=== PATIENT | female | born 1990 | race Caucasian/White ===

== ENCOUNTER 2019-04-06 12:50 | Inpatient (IN) | payer OTHER ==
[2019-04-06] MEDS ORDERED: SODIUM CHLORIDE 1,000 ML IV STA (13:02)
[2019-04-06] MEDS ORDERED: ACETAMINOPHEN 1000 MG/100 ML VIAL (NON FORMULARY) IVPB ONE (13:02)
[2019-04-06] MEDS ORDERED: ACETAMINOPHEN 325 MG TABLET (FP) ONE ×2 (13:05→20:51)
[2019-04-06] MEDS ORDERED: ACETAMINOPHEN 325 MG TABLET (FP) PO ONE (13:08)
[2019-04-06 13:10] VITALS: BMI 26.4
--- NOTE | 2019-04-06 13:12 | PDOC ---
Rapid Medical Evaluation Medical Evaluation: Allergies Allergy/AdvReac Type Severity Reaction Status Date / Time No Known Allergies Allergy Verified 04/06/19 13:00 Vital Signs Temp Pulse Resp BP Pulse Ox 102 F H 123 H 22 H 119/72 98 04/06/19 13:08 04/06/19 13:08 04/06/19 13:08 04/06/19 13:08 04/06/19 13:08 04/06/19 13:10 Pt c/o: flank pain and dysuria, 17 weeks , started macrobid yesterday Pt on brief exam: rt cva tenderness, tachy Pt ordered for: labs urine, ivf, iv tylenol Pt to proceed to the ED <Maxine Carrizales - Last Filed: 04/12/19 13:46> Medical Evaluation: Allergies Allergy/AdvReac Type Severity Reaction Status Date / Time No Known Allergies Allergy Verified 04/06/19 13:00 Vital Signs Temp Pulse Resp BP Pulse Ox 98.0 F 88 18 100/55 L 99 04/09/19 10:00 04/09/19 10:00 04/09/19 10:00 04/09/19 10:00 04/06/19 20:49 <Camille Tolbert - Last Filed: 04/12/19 19:33> Time Seen by Provider: 04/06/19 13:01 Discharge Disposition <Maxine Carrizales - Last Filed: 04/12/19 13:46> <Camille Tolbert - Last Filed: 04/12/19 19:33> - Diagnosis Flank pain, Acute pyelonephritis in second trimester, antepartum - Discharge Dispostion Condition at time of disposition: Stable
--- NOTE | 2019-04-06 13:46 | PDOC ---
History of Present Illness <Camille Tolbert Tanner - Last Filed: 04/06/19 19:12> - History of Present Illness Initial Comments: 04/06/19 14:57 The patient is a 29 year old 17 week female who presents for evaluation of right flank pain. The patient reports a 1 day history of worsening right flank pain with associated dysuria. She noted fevers today prompting her presentation to the ED for further evaluation. She states that she was diagnosed with a UTI by her OB and placed on macrobid that she started taking 1 day ago. She otherwise denies chills, SOB, chest pain, nausea, vomiting, abdominal pain, vaginal bleeding, vaginal discharge, or changes with bowel movements. <MelissaServando - Last Filed: 04/06/19 19:19> - General Chief Complaint: SIRS, Suspected/Possible Stated Complaint: 17 W PREG/FLANK PAIN Time Seen by Provider: 04/06/19 13:01 Past History <DidiCamillearik Hart - Last Filed: 04/06/19 19:12> - Past Medical History COPD: No - Psycho Social/Smoking Cessation Hx Smoking History: Never smoked <Servando Torres - Last Filed: 04/06/19 19:19> - Past Medical History Allergies/Adverse Reactions: Allergies Allergy/AdvReac Type Severity Reaction Status Date / Time No Known Allergies Allergy Verified 04/06/19 13:00 Home Medications: Ambulatory Orders Ferrous Sulfate 325 mg PO DAILY 04/06/19 Nitrofurantoin Monohyd/M-Cryst [Macrobid -] 100 mg PO BID 04/06/19 95/Iron Fum/Folic/Dha [ + Dha Combo Pack] 1 each PO DAILY 04/06 Review of Systems - Review of Systems Comments:: 04/06/19 15:02 Constitutional: Fevers. No chills, fatigue, malaise HEENT: No Rhinorrhea, nasal congestion, visual changes Cardiovascular: No chest pain, syncope, palpitations, lightheadedness Respiratory: No Cough, SOB, Hemoptysis, Gastrointestinal: No Abdominal pain, Nausea, Vomiting, Constipation, Diarrhea, Melena Genitourinary: Right flank pain, Dysuria. No Frequency, Urgency, Hesitancy, Hematuria, Musculoskeletal: No Myalgia, arthralgia Skin: No rashes, itching, bruising, pallor Neurologic: No Headache, Dizziness, Numbness, Weakness, or Tingling Psychiatric: No Hallucinations. No SI or HI <Servando Torres - Last Filed: 04/06/19 19:19> *Physical Exam - Vital Signs Last Vital Signs Temp Pulse Resp BP Pulse Ox 98.4 F 97 H 22 H 103/82 99 04/06/19 17:18 04/06/19 17:18 04/06/19 13:08 04/06/19 17:18 04/06/19 17:18 <Camille Tolbert - Last Filed: 04/06/19 19:12> - Vital Signs Last Vital Signs Temp Pulse Resp BP Pulse Ox 102 F H 123 H 22 H 119/72 98 04/06/19 13:08 04/06/19 13:08 04/06/19 13:08 04/06/19 13:08 04/06/19 13:08 - Physical Exam 04/06/19 15:03 General Appearance: Nourished. No Apparent Distress HEENT: No Pharyngeal Erythema, Tonsillar Exudate, Tonsillar Erythema Neck: No Cervical Lymphadenopathy Respiratory/Chest: Lungs Clear, Normal Breath Sounds. No Crackles, Rales, Rhonchi, Wheezing Cardiovascular: Regular Rhythm, Regular Rate. No Murmur, Gallops, Rubs Gastrointestinal/Abdominal: Normal Bowel Sounds, Soft. No Guarding, Rebound, Tenderness Musculoskeletal: Right CVA Tenderness. No Left CVA Tenderness Extremity: Normal Capillary Refill Integumentary: Normal Color, Dry, Warm Neurologic: Fully Oriented, Alert, Normal Mood/Affect, Normal Response, <MelissaServando - Last Filed: 04/06/19 19:19> Heart Score/ECG Review #1 ECG reviewed & interpreted by me at: 19:05 General ECG Interpretation: Sinus Rhythm, Normal Intervals 04/06/19 19:12 Sinus tachycardia 101 bpm, nonspecific T wave abnormalities, normal intervals, narrow QRS, normal ST/T wave segments <Camille Tolbert - Last Filed: 04/06/19 19:12> ED Treatment Course - LABORATORY CBC & Chemistry Diagram: 04/06/19 14:12 04/06/19 14:12 - ADDITIONAL ORDERS Additional order review: Laboratory Results 04/06/19 04/06/19 14:55 14:12 Sodium 136 Potassium 3.5 Chloride 106 Carbon Dioxide 21 Anion Gap 8 BUN 5.3 L Creatinine 0.4 L Est GFR (CKD-EPI)AfAm 165.44 Est GFR (CKD-EPI)NonAf 142.74 Random Glucose 74 Calcium 8.6 Total Bilirubin 0.3 AST 16 ALT 17 Alkaline Phosphatase 105 Total Protein 6.2 L Albumin 2.7 L Lipase 152 Urine Color Yellow Urine Appearance Cloudy Urine pH 8.0 Ur Specific [place] 1.006 L Urine Protein Negative Urine Glucose (UA) Negative Urine Ketones Negative Urine Blood Negative Urine Nitrite Negative Urine Bilirubin Negative Urine Urobilinogen 0.2 Ur Leukocyte Esterase 1+ H Urine WBC (Auto) 26 Urine RBC (Auto) 1 Urine Casts (Auto) 1 U Epithel Cells (Auto) 10.8 Urine Bacteria (Auto) 1095.6 04/06/19 14:12 RBC 3.51 L MCV 80.5 MCHC 33.5 RDW 13.8 MPV 9.3 Neutrophils % 72.8 Lymphocytes % 15.3 Monocytes % 11.2 H Eosinophils % 0.5 Basophils % 0.2 - Medications Given in the ED: ED Medications Discontinued Medications Generic Name Dose Route Start Last Admin Trade Name Freq PRN Reason Stop Dose Admin Acetaminophen 1,000 mg 04/06/19 13:02 04/06/19 13:08 Ofirmev Injection - IVPB 04/06/19 13:03 Not Given ONCE ONE Acetaminophen 650 mg 04/06/19 13:08 04/06/19 13:08 Tylenol - PO 04/06/19 13:09 650 mg NOW ONE Administration Sodium Chloride 1,000 mls @ 1,000 mls/hr 04/06/19 13:02 04/06/19 14:20 Normal Saline - IV 04/06/19 14:01 1,000 mls/hr ASDIR STA Administration Ceftriaxone Sodium 1 gm/ 100 mls @ 200 mls/hr 04/06/19 16:55 04/06/19 17:00 Dextrose IVPB 04/06/19 17:24 200 mls/hr ONCE ONE Administration <Camille Tolbert - Last Filed: 04/06/19 19:12> - LABORATORY CBC & Chemistry Diagram: 04/06/19 14:12 04/06/19 14:12 - Medications Given in the ED: ED Medications Discontinued Medications Generic Name Dose Route Start Last Admin Trade Name Freq PRN Reason Stop Dose Admin Acetaminophen 1,000 mg 04/06/19 13:02 04/06/19 13:08 Ofirmev Injection - IVPB 04/06/19 13:03 Not Given ONCE ONE Acetaminophen 650 mg 04/06/19 13:08 04/06/19 13:08 Tylenol - PO 04/06/19 13:09 650 mg NOW ONE Administration <Servando Torres - Last Filed: 04/06/19 19:19> Medical Decision Making - Medical Decision Making 04/06/19 15:04 The patient is a 29 year old 17 week female who presents for evaluation of right flank pain. Differential includes but is not limited to: Pyelonephritis, Kidney stone, UTI, Infectious, Metabolic Derangement. Given the patient's history and physical exam, we will obtain a cbc, cmp, ua, renal US to evaluate further. We will treat with iv fluids and tylenol here in the Ed and continue to monitor and reassess. 04/06/19 19:14 CBC demonstrate a wbc to 10.3. CMP is unremarkable. UA demonstrates positive leuk esterase with elevated WBC. Renal US demonstrates bilateral mild hydronephrosis as read by our radiologist. Bedside US demonstrates normal HR at 143 with movement. The patient's symptoms are likely due to pyelonephritis. Given the patient's pyelonephritis during , she will require admission for further management. We discussed the case with OB Dr. Caputo who evaluated the patient and has accepted the patient to the OB service. We have treated the patient with ceftriaxone here in the ED. <Servando Torres - Last Filed: 04/06/19 19:19> Discharge <Camille Tolbert - Last Filed: 04/06/19 19:12> - Discharge Information Problems reviewed: Yes <Servando Torres - Last Filed: 04/06/19 19:19> - Discharge Information Clinical Impression/Diagnosis: Flank pain, Acute pyelonephritis in second trimester, antepartum Condition: Guarded
[2019-04-06 15:11] LABS: BASO % 0.2 % (0-2.0); EOS % 0.5 % (0-4.5); HEMATOCRIT 28.3 % (32.4-45.2); HEMOGLOBIN 9.5 GM/dL (10.7-15.3); LYMPH % 15.3 % (8-40); MCHC 33.5 g/dl (32.0-36.0); MEAN CELL VOLUME 80.5 fl (80-96); MEAN PLT VOLUME 9.3 fl (7.5-11.1); MONO % 11.2 % (3.8-10.2); NEUT % 72.8 % (42.8-82.8); PLATELET COUNT 222 K/MM3 (134-434); RBC 3.51 M/mm3 (3.60-5.2); RDW 13.8 % (11.6-15.6); WHITE BLOOD COUNT 10.5 K/mm3 (4.0-10.0)
--- NOTE | 2019-04-06 15:18 | PDOC ---
Documentation entered by Richardson Salas SCRIBE, acting as scribe for Nestor Polk MD. Nestor Polk MD: This documentation has been prepared by the Josue hughes Xhesika, SCRIBE, under my direction and personally reviewed by me in its entirety. I confirm that the documentation accurately reflects all work, treatment, procedures, and medical decision making performed by me. Attending Attestation - Resident Resident Name: Servando Torres - ED Attending Attestation I have performed the following: I have examined & evaluated the patient, The case was reviewed & discussed with the resident, I agree w/resident's findings & plan, Exceptions are as noted - HPI HPI: 04/06/19 14:42 The patient is a 29 year old female, 17 weeks with no PMH of who presents to the ED for 1 day of R flank pain and dysuria. Patient notes she started macrobid yesterday for UTI. Pt notes today she developed fevers. The patient denies shortness of breath, headache and dizziness. Denies chills, cough, nausea, vomiting, diarrhea and constipation. Denies frequency, urgency and hematuria. Allergies:, NKDA Social Hx: Denies current smoking, drinking, or other substance usage. - Physicial Exam PE: 04/06/19 14:43 Vitals: Triage Vital signs reviewed General Appearance: no acute distress, well nourished well developed, Chest Wall: Nontender Cardiac: Regular rate and rhythm, no murmurs, no rubs, no gallops, Lungs: Clear to auscultation bilateral, good air movement bilaterally, Abdomen: +R CVA tenderness to palpation. 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
[2019-04-06 16:12] LABS: ALBUMIN 2.7 g/dl (3.4-5.0); BILIRUBIN,TOTAL 0.3 mg/dL (0.2-1); BLOOD UREA NITROGEN 5.3 mg/dL (7-18); CALCIUM 8.6 mg/dL (8.5-10.1); CREATININE 0.4 mg/dL (0.55-1.3); POTASSIUM 3.5 mmol/L (3.5-5.1); TOT PROT 6.2 g/dl (6.4-8.2)
[2019-04-06 16:13] LABS: EPI CELLS 10.8 /HPF (0-5/HPF); HYALINE CASTS 1 /lpf (0-8); URINE APPEARANCE CLOUDY; URINE BACTERIA 1095.6 /hpf (NEGATIVE); URINE BILIRUBIN NEGATIVE (NEGATIVE); URINE COLOR YELLOW; URINE GLUCOSE (UA) NEGATIVE (NEGATIVE); URINE KETONE NEGATIVE (NEGATIVE); URINE LEUK ESTERASE 1+ (NEGATIVE); URINE NITRITE NEGATIVE (NEGATIVE); URINE PROTEIN NEGATIVE (NEGATIVE); URINE RBC 1 /hpf (0-4); URINE UROBILINOGEN 0.2 mg/dL (0.2-1.0); URINE WBC 26 /hpf (0-5)
[2019-04-06] MEDS ORDERED: CEFTRIAXONE 1 GM in DEXTROSE 5%-WATER - 100 ML IVPB ONE (16:55)
[2019-04-06] MEDS ORDERED: CEFTRIAXONE 1 GM/50 ML BAG ONE (16:58)
--- NOTE | 2019-04-06 19:10 | PDOC ---
*Physical Exam - Vital Signs Last Vital Signs Temp Pulse Resp BP Pulse Ox 98.4 F 97 H 22 H 103/82 99 04/06/19 17:18 04/06/19 17:18 04/06/19 13:08 04/06/19 17:18 04/06/19 17:18 ED Treatment Course - LABORATORY CBC & Chemistry Diagram: 04/06/19 14:12 04/06/19 14:12 - ADDITIONAL ORDERS Additional order review: Laboratory Results 04/06/19 04/06/19 14:55 14:12 Sodium 136 Potassium 3.5 Chloride 106 Carbon Dioxide 21 Anion Gap 8 BUN 5.3 L Creatinine 0.4 L Est GFR (CKD-EPI)AfAm 165.44 Est GFR (CKD-EPI)NonAf 142.74 Random Glucose 74 Calcium 8.6 Total Bilirubin 0.3 AST 16 ALT 17 Alkaline Phosphatase 105 Total Protein 6.2 L Albumin 2.7 L Lipase 152 Urine Color Yellow Urine Appearance Cloudy Urine pH 8.0 Ur Specific [place] 1.006 L Urine Protein Negative Urine Glucose (UA) Negative Urine Ketones Negative Urine Blood Negative Urine Nitrite Negative Urine Bilirubin Negative Urine Urobilinogen 0.2 Ur Leukocyte Esterase 1+ H Urine WBC (Auto) 26 Urine RBC (Auto) 1 Urine Casts (Auto) 1 U Epithel Cells (Auto) 10.8 Urine Bacteria (Auto) 1095.6 04/06/19 14:12 RBC 3.51 L MCV 80.5 MCHC 33.5 RDW 13.8 MPV 9.3 Neutrophils % 72.8 Lymphocytes % 15.3 Monocytes % 11.2 H Eosinophils % 0.5 Basophils % 0.2 - Medications Given in the ED: ED Medications Discontinued Medications Generic Name Dose Route Start Last Admin Trade Name Anival PRN Reason Stop Dose Admin Acetaminophen 1,000 mg 04/06/19 13:02 04/06/19 13:08 Ofirmev Injection - IVPB 04/06/19 13:03 Not Given ONCE ONE Acetaminophen 650 mg 04/06/19 13:08 04/06/19 13:08 Tylenol - PO 04/06/19 13:09 650 mg NOW ONE Administration Sodium Chloride 1,000 mls @ 1,000 mls/hr 04/06/19 13:02 04/06/19 14:20 Normal Saline - IV 04/06/19 14:01 1,000 mls/hr ASDIR STA Administration Ceftriaxone Sodium 1 gm/ 100 mls @ 200 mls/hr 04/06/19 16:55 04/06/19 17:00 Dextrose IVPB 04/06/19 17:24 200 mls/hr ONCE ONE Administration Medical Decision Making - Medical Decision Making 04/06/19 19:08 pt signed out from Dr Polk pending admission +fever, +tachycardia. given analgesia, IVF and antipyretics. She has WBCs greater than 26 and 1+ urinary leuk esterase follow-up on urine cultures, mild leukocytosis is noted 10 point 5K, electrolytes and creatinine are within normal limits Given setting of pyelonephritis in , patient does have risk of bacteremia and ascending infection getting worse/sepsis so will admit Renal ultrasound with bilateral hydronephrosis which is physiologic related to her . Bedside [id number] ultrasound done with appropriate wellbeing, heart rate 145 bpm and adequate movement. 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 04/06/19 19:11 04/06/19 19:11 Discharge - Discharge Information Problems reviewed: Yes Clinical Impression/Diagnosis: Flank pain, Acute pyelonephritis in second trimester, antepartum Condition: Guarded - Admission Yes - Follow up/Referral - Patient Discharge Instructions - Post Discharge Activity
[2019-04-06] MEDS ORDERED: LACTATED RINGERS SOLUTION 1,000 ML/1,000 ML INFUS.BAG IV SCH (19:30)
--- NOTE | 2019-04-06 19:33 | HP ---
Admitting History and Physical - Primary Care Physician PCP: Jeb Caputo - Admission Chief Complaint: right flank pain History of Present Illness: Patient reports diagnosis of UTI and starting PO antibiotics today. She reports severe pain that has now improved and feeling cold at home. She denies LOF, VB, contractions, chills, nusea, vomiting. 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 MAKER: No: Alzheimer's, CVA, Dementia, Migraine, Multiple Sclerosis, Peripheral Neuropathy, Parkinson's, Seizure, Syncope, TIA, Vertigo, Other Cardiovascular: No: AFIB, Aneurysm, Aortic Insufficiency, Aortic Stenosis, CAD, CHF, Deep Vein Thrombosis, HTN, Hyperlipdemia, VA, Mitral Insufficiency, Mitral Stenosis, Murmur, Pulmonary Hypertension, Other Pulmonary: No: Asthma, Bronchitis, Cancer, COPD, O2 Dependent, Pneumonia, Previously Intubated, Pulmonary Embolus, Pulmonary Fibrosis, Sleep Apnea, Other Gastrointestinal: No: Ascites, Cancer, Constipation, Crohn's Disease, Diverticulitis, Diverticulosis, Esophageal Varices, Gastritis, GERD, GI Bleed, Hemorrhoids, Hiatal Hernia, Inflamatory Bowel Disease, Irritable Bowel Disease, Pancreatitis, Peptic Ulcer Disease, Ulcerative Colitis, Other Hepatobiliary: No: Cirrhosis, Cholelithiasis, Cholecystitis, Choledocholithiasis , Hepatitis A, Hepatitis B, Hepatitis C, Other Renal/: No: Renal Failure, Renal Inusuff, BPH, Cancer, Hematuria, Hemodialysis , Neurogenic Bladder, Renal Calculi, UTI, Other ...: Yes ...: 1 Heme/Onc: No: Anemia, B12 Deficiency, Bleeding Disorder, Cancer, Current Chemotherapy, Current Radiation Therapy, Hemochromatosis, Hypercoaguable State, Myeloproliferative Synd, Sickle Cell Disease, Sickle Cell Trait, Thrombocytopenia, Other Infectious Disease: No: AIDS, C-Diff, Herpes Zoster, HIV, MRSA, STD's, Tuberculosis, VREF, Other Psych: No: Addictions, Anxiety, Bipolar, Depression, Panic, Psychosis, Schizophrenia, Other Musculoskeletal: No: Bursitis, Chronic low back pain, Hemiparesis, Hemiplegia, Osteoarthritis, Paraplegia, Other Rheumatology: No: Fibromyalgia, Gout, Lupus, Rheumatoid Arthritis, Sarcoidosis, Vasculitis, Other ENT: No: Allergic Rhinitis, Sinusitis, Other Endocrine: No: Archuleta's Disease, Bronson's Disease, Diabetes Insipidus, Diabetes Mellitus, Hyperparathyroidism, Hyperthyroidism, Hypothyroidism, Osteopenia, SIADH, Other Dermatology: No: Basal Cell, Cellulitis, Eczema, Melanoma, Psoriasis, Squamous Cell, Other - Past Surgical History Past Surgical History: No: None, AAA Repair, AICD, Amputation, Appendectomy, Arthrosocopy, AV Fistula/Graft, Bariatric Surgery, Breast Biopsy, Bypass, CABG, Carotid Endarterectomy, Cataract Removal, Cholecystectomy, Colectomy, Colonoscopy, Colostomy, Craniotomy, , Cystectomy, Hernia Repair, Hysterectomy, Ileal Conduit, Ileosotomy, Joint Replacement, Kidney Transplant, Laminectomy, Liver Transplant, Mastectomy, Nephrectomy, Oopherectomy, Orchiectomy, Permanent Pacemaker, Prostatectomy, Splenectomy, Stent, Thoracotomy , TURP, Tonsillectomy, Tubal Ligation, Upper Endoscopy, Valve Replacement, Vasectomy, Vein Stripping/Ligation - Smoking History Smoking history: Never smoked - Alcohol/Substance Use Hx Alcohol Use: No History of Substance Use: reports: None Home Medications - Allergies Allergies/Adverse Reactions: Allergies Allergy/AdvReac Type Severity Reaction Status Date / Time No Known Allergies Allergy Verified 04/06/19 13:00 - Home Medications Home Medications: Ambulatory Orders Ferrous Sulfate 325 mg PO DAILY 04/06/19 Nitrofurantoin Monohyd/M-Cryst [Macrobid -] 100 mg PO BID 04/06/19 95/Iron Fum/Folic/Dha [ + Dha Combo Pack] 1 each PO DAILY 04/06 Family Medical History Family History: Unremarkable Review of Systems - Review of Systems Constitutional: reports: Chills, Fever Eyes: reports: No Symptoms HENT: reports: Mouth Swelling Neck: reports: No Symptoms Cardiovascular: reports: No Symptoms Respiratory: reports: No Symptoms Gastrointestinal: reports: No Symptoms Genitourinary: reports: Flank Pain (right) Breasts: reports: No Symptoms Reported Musculoskeletal: reports: No Symptoms, Muscle Cramps Integumentary: reports: No Symptoms Neurological: reports: No Symptoms Endocrine: reports: No Symptoms Hematology/Lymphatic: reports: No Symptoms Psychiatric: reports: No Symptoms Physical Examination Vital Signs: Vital Signs Temperature 98.4 F 04/06/19 17:18 Pulse Rate 97 H 04/06/19 17:18 Respiratory Rate 22 H 04/06/19 13:08 Blood Pressure 103/82 04/06/19 17:18 O2 Sat by Pulse Oximetry (%) 99 04/06/19 17:18 Constitutional: Yes: No Distress HENT: Yes: Atraumatic Neck: Yes: Supple Cardiovascular: Yes: Regular Rate and Rhythm Respiratory: Yes: Regular Gastrointestinal: Yes: Normal Bowel Sounds, Other (grevid, n/t, n/d) Renal/: Yes: CVA Tenderness - Right (moderate) Breast(s): Yes: Other Musculoskeletal: Yes: WNL Extremities: Yes: WNL Edema: Yes Edema: LLE: Trace, RLE: Trace Integumentary: Yes: WNL Neurological: Yes: Alert, Oriented ...Motor Strength: WNL Psychiatric: Yes: Alert, Oriented Labs: CBC, BMP 04/06/19 14:12 04/06/19 14:12 Imaging - Results Ultrasound: Report Reviewed, Image Reviewed Assessment/Plan 29 y/o G1 at approximately 17wks by patient, no OB complaints, presentation consistent with pyelonephritis, renal sono consistent with non-obstructing calculi. Stable condition following antipyretics and IV ceftriaxone. ER bedside sono revealed viable . -Admit for IV abx -F/U Ux -Regular diet -FHR daily -strain urine -Consider Urology consult if no clinical improvement
[2019-04-06] MEDS: ACETAMINOPHEN 325 MG TABLET (FP) PO PRN (20:53)
[2019-04-07] MEDS: ACETAMINOPHEN 325 MG TABLET (FP) PO PRN ×2 (04:55→17:49)
[2019-04-07] MEDS: CEFTRIAXONE 1 GM in DEXTROSE 5%-WATER - 50 ML IVPB SCH ×2 (06:14→18:19)
--- NOTE | 2019-04-07 11:56 | PN ---
Progress Note, Physician Chief Complaint: Patient is doing well, pain has subsided, no bleeding, no LOF, no contractions. Patient reports LUCERO 07/21/18 making her 24.6wks. - Current Medication List Current Medications: Active Medications Acetaminophen (Tylenol -) 650 mg PO Q6H PRN PRN Reason: FEVER Last Admin: 04/07/19 04:55 Dose: 650 mg Ceftriaxone Sodium 1 gm/ (Dextrose) 50 mls @ 100 mls/hr IVPB Q12H ANTHONY Stop: 04/10/19 05:59 Last Admin: 04/07/19 06:14 Dose: 100 mls/hr Lactated Ringer's (Lactated Ringers Solution) 1,000 ml in 1,000 mls @ 125 mls/ hr IV ASDIR ANTHONY Stop: 04/07/19 17:00 Last Admin: 04/06/19 20:50 Dose: 125 mls/hr - Objective Vital Signs: Vital Signs Temperature 98.8 F 04/07/19 06:23 Pulse Rate 114 H 04/07/19 04:38 Respiratory Rate 20 04/07/19 04:38 Blood Pressure 100/60 04/07/19 04:38 O2 Sat by Pulse Oximetry (%) 99 04/06/19 20:49 Constitutional: Yes: Well Nourished HENT: Yes: Atraumatic Neck: Yes: Supple Cardiovascular: Yes: Regular Rate and Rhythm Respiratory: Yes: Regular Gastrointestinal: Yes: Soft ...Rectal Exam: Yes: Deferred Genitourinary: Yes: WNL Musculoskeletal: Yes: WNL Extremities: Yes: WNL Integumentary: Yes: WNL Neurological: Yes: Alert, Oriented Psychiatric: Yes: Alert, Oriented Labs: CBC, BMP 04/06/19 14:12 04/06/19 14:12 Assessment/Plan 29 y/o G1 at 24.6wks by LUCERO of 07/21/18, no OB complaints, presentation consistent with pyelonephritis, renal sono consistent with non-obstructing calculi. Stable condition following antipyretics and IV ceftriaxone. Clinically improved. -IV abx -F/U Ux -Regular diet -NST daily -strain urine -Consider D/C after 24 afebrile
--- NOTE | 2019-04-07 14:11 | EKG ---
Test Reason : Blood Pressure : / mmHG Vent. Rate : 101 BPM Atrial Rate : 101 BPM P-R Int : 150 ms QRS Dur : 082 ms QT Int : 326 ms P-R-T Axes : 028 013 001 degrees QTc Int : 422 ms SINUS TACHYCARDIA NONSPECIFIC T WAVE ABNORMALITY ABNORMAL ECG NO PREVIOUS ECGS AVAILABLE Confirmed by BERTHA TRIPP MD ([id number]) on 04/07/2019 2:11:36 PM Referred By: Confirmed By:BERTHA TRIPP MD
[2019-04-07 18:12] LABS: BASO % 0.2 % (0-2.0); EOS % 1.1 % (0-4.5); HEMATOCRIT 26.2 % (32.4-45.2); HEMOGLOBIN 8.6 GM/dL (10.7-15.3); LYMPH % 17.6 % (8-40); MCH 26.6 pg (25.7-33.7); MCHC 32.8 g/dl (32.0-36.0); MEAN CELL VOLUME 81.2 fl (80-96); MEAN PLT VOLUME 8.9 fl (7.5-11.1); MONO % 11.2 % (3.8-10.2); NEUT % 69.9 % (42.8-82.8); PLATELET COUNT 198 K/MM3 (134-434); RBC 3.22 M/mm3 (3.60-5.2); RDW 14.2 % (11.6-15.6); WHITE BLOOD COUNT 9.7 K/mm3 (4.0-10.0)
[2019-04-07] MEDS: CEFAZOLIN 1 GM/D5W 1 GM/50 ML BAG IVPB SCH (21:08)
[2019-04-08] MEDS: CEFAZOLIN 1 GM/D5W 1 GM/50 ML BAG IVPB SCH ×3 (02:20→15:07)
--- NOTE | 2019-04-08 07:42 | PN ---
Progress Note, Physician Chief Complaint: Patient is doing well, pain has subsided, no bleeding, no LOF, no contractions. Patient reports LUCERO 07/21/18 making her 25.0 wks. Patient reports desire to go home History of Present Illness: Patient admitted for pyelonephritis in 2nd trimester of - Current Medication List Current Medications: Active Medications Acetaminophen (Tylenol -) 650 mg PO Q6H PRN PRN Reason: FEVER Last Admin: 04/07/19 17:49 Dose: 650 mg Ferrous Sulfate (Feosol -) 325 mg PO DAILY ANTHONY Cefazolin Sodium (Ancef 1 Gm Premixed Ivpb -) 1 gm in 50 mls @ 100 mls/hr IVPB Q6H-IV ANTHONY Stop: 04/10/19 20:59 Last Admin: 04/08/19 02:20 Dose: 100 mls/hr - Objective Vital Signs: Vital Signs Temperature 98.3 F 04/08/19 05:48 Pulse Rate 62 04/08/19 05:48 Respiratory Rate 18 04/08/19 05:48 Blood Pressure 105/62 04/08/19 05:48 O2 Sat by Pulse Oximetry (%) 99 04/06/19 20:49 Constitutional: Yes: No Distress HENT: Yes: Atraumatic Neck: Yes: Supple Cardiovascular: Yes: Regular Rate and Rhythm Respiratory: Yes: Regular Gastrointestinal: Yes: Normal Bowel Sounds, Soft (gravid, no CVA tenderness) ...Rectal Exam: Yes: Deferred Genitourinary: Yes: Other (deferred) Breast(s): Yes: Other (deferred) Musculoskeletal: Yes: WNL Extremities: Yes: WNL Edema: Yes Edema: LLE: Trace, RLE: Trace Integumentary: Yes: WNL Wound/Incision: Yes: Well Approximated Neurological: Yes: Alert, Oriented Psychiatric: Yes: Alert, Oriented Labs: CBC, BMP 04/07/19 17:25 04/06/19 14:12 - ....Imaging Ultrasound: Report Reviewed Assessment/Plan 29 y/o G1 at 25.0 wks by LUCERO of 07/21/18, no OB complaints, presentation consistent with pyelonephritis, renal sono consistent with non-obstructing calculi. Stable condition following antipyretics and IV ceftriaxone. Clinically improved and last febrile episode yesterday at 6pm. -IV abx -F/U Ux sensitivities -Regular diet -NST daily -strain urine -Consider switch to PO Abx later today
[2019-04-08 09:01] LABS: BASO % 0.1 % (0-2.0); EOS % 1.2 % (0-4.5); HEMATOCRIT 27.2 % (32.4-45.2); HEMOGLOBIN 8.9 GM/dL (10.7-15.3); MCH 26.5 pg (25.7-33.7); MCHC 32.8 g/dl (32.0-36.0); MEAN CELL VOLUME 80.8 fl (80-96); MEAN PLT VOLUME 8.9 fl (7.5-11.1); MONO % 6.8 % (3.8-10.2); NEUT % 74.9 % (42.8-82.8); PLATELET COUNT 199 K/MM3 (134-434); RBC 3.36 M/mm3 (3.60-5.2); RDW 14.5 % (11.6-15.6); WHITE BLOOD COUNT 8.6 K/mm3 (4.0-10.0)
[2019-04-08] MEDS: FERROUS SO4 325 MG TABLET (FP) PO SCH (09:43)
[2019-04-08 09:49] LABS: ALBUMIN 2.4 g/dl (3.4-5.0); BILIRUBIN,TOTAL 0.2 mg/dL (0.2-1); BLOOD UREA NITROGEN 5.3 mg/dL (7-18); CALCIUM 8.6 mg/dL (8.5-10.1); CREATININE 0.4 mg/dL (0.55-1.3); POTASSIUM 3.6 mmol/L (3.5-5.1); TOT PROT 5.7 g/dl (6.4-8.2)
--- NOTE | 2019-04-08 14:59 | DS ---
Physical Examination Vital Signs: Vital Signs Temperature 98.4 F 04/08/19 08:50 Pulse Rate 97 H 04/08/19 08:50 Respiratory Rate 18 04/08/19 08:50 Blood Pressure 112/68 04/08/19 08:50 O2 Sat by Pulse Oximetry (%) 99 04/06/19 20:49 Findings/Remarks: Patient doing well, and flank pain resolved, +FM Constitutional: Yes: No Distress HENT: Yes: Atraumatic Neck: Yes: Supple Cardiovascular: Yes: Regular Rate and Rhythm Respiratory: Yes: Regular Gastrointestinal: Yes: Soft, Other (gravid, n/t) ...Rectal Exam: Yes: Deferred Renal/: Yes: Other Musculoskeletal: Yes: Other Extremities: Yes: WNL Edema: Yes Edema: LLE: Trace, RLE: Trace Integumentary: Yes: WNL Wound/Incision: Yes: Well Approximated Neurological: Yes: Alert, Oriented ...Motor Strength: WNL Psychiatric: Yes: Alert, Oriented Labs: CBC, BMP 04/08/19 07:50 04/08/19 06:00 Discharge Summary Problems reviewed: Yes Reason For Visit: PYELONEPHRITIS AFFECTING Current Active Problems Acute pyelonephritis in second trimester, antepartum (Acute) Flank pain (Acute) Procedures: Principal: Hospital admission and IV antibiotic treatment Hospital Course: Patient evaluated and admitted for pyelonephritis for 3 days. Patient found to have nephrolithiasis and 25wks. Patient was switched to PO abx on hospital day # 3. Plan of Treatment: PO Antibiotics for 14 days and follow up with OBGYN within a week. Condition: Stable - Instructions Diet, Activity, Other Instructions: Patient instructed to return to regular diet and activity as tolerated. PTL precautions discussed and all questions answered. Strict adherence to oral antibiotics stressed. Patient is to follow up with OBGYN within a week. Health center contact information provider. Referrals: Milady Real MD [Staff Physician] - Disposition: HOME - Home Medications Comprehensive Discharge Medication List: Ambulatory Orders Ferrous Sulfate 325 mg PO DAILY 04/06/19 Nitrofurantoin Monohyd/M-Cryst [Macrobid -] 100 mg PO BID 04/06/19 95/Iron Fum/Folic/Dha [ + Dha Combo Pack] 1 each PO DAILY 04/06 Cephalexin [Keflex] 500 mg PO Q12H 14 Days #28 capsule MDD 2 04/08/19
[2019-04-08] MEDS: CEPHALEXIN MONOHYDRATE 500 MG CAPSULE (UD) PO SCH (21:50)
[2019-04-09 06:02] VITALS: TEMP 98
[2019-04-09] MEDS: CEPHALEXIN MONOHYDRATE 500 MG CAPSULE (UD) PO SCH (08:38)
--- NOTE | 2019-04-09 08:52 | DS ---
Physical Examination Vital Signs: Vital Signs Temperature 98.0 F 04/09/19 06:02 Pulse Rate 94 H 04/09/19 06:02 Respiratory Rate 20 04/09/19 06:02 Blood Pressure 98/69 04/09/19 06:02 O2 Sat by Pulse Oximetry (%) 99 04/06/19 20:49 Findings/Remarks: Ambulating, voiding, pain resolved, desiring to go home, +FM, no VB, no LOF, no contractions Constitutional: Yes: Well Nourished HENT: Yes: Atraumatic Neck: Yes: Supple Cardiovascular: Yes: Regular Rate and Rhythm Respiratory: Yes: Regular Gastrointestinal: Yes: Soft ...Rectal Exam: Yes: Deferred Renal/: Yes: Other (deferred) Breast(s): Yes: Other (deferred) Musculoskeletal: Yes: WNL Extremities: Yes: WNL Edema: Yes Edema: LLE: Trace, RLE: Trace Integumentary: Yes: WNL Neurological: Yes: Alert, Oriented ...Motor Strength: WNL Psychiatric: Yes: Alert, Oriented Labs: CBC, BMP 04/08/19 07:50 04/08/19 06:00 Discharge Summary Problems reviewed: Yes Reason For Visit: PYELONEPHRITIS AFFECTING Current Active Problems Acute pyelonephritis in second trimester, antepartum (Acute) Flank pain (Acute) Procedures: Principal: Inpatient management Hospital Course: Patient evaluated and admitted for pyelonephritis for 3 days. Patient found to have nephrolithiasis and 25wks. Patient was switched to PO abx on hospital day # 3. Plan of Treatment: PO Antibiotics for 14 days and follow up with OBGYN within a week. Condition: Stable - Instructions Diet, Activity, Other Instructions: Patient instructed to return to regular diet and activity as tolerated. PTL precautions discussed and all questions answered. Strict adherence to oral antibiotics stressed. Patient is to follow up with OBGYN within a week. Health center contact information provider. Referrals: Milady Real MD [Staff Physician] - Disposition: HOME - Home Medications Comprehensive Discharge Medication List: Ambulatory Orders Ferrous Sulfate 325 mg PO DAILY 04/06/19 Nitrofurantoin Monohyd/M-Cryst [Macrobid -] 100 mg PO BID 04/06/19 95/Iron Fum/Folic/Dha [ + Dha Combo Pack] 1 each PO DAILY 04/06 Cephalexin [Keflex] 500 mg PO Q12H 14 Days #28 capsule MDD 2 04/08/19 Pnv No.95/Ferrous Fum/Folic AC [ Vitamin Tablet] 1 each PO DAILY 30 Days #30 tablet 04/09/19
[2019-04-09] MEDS: FERROUS SO4 325 MG TABLET (FP) PO SCH (10:31)
[2019-04-09 10:47] VITALS: BP 100/55; PULSE 88
== END 2019-04-09 11:35 | disposition home or self-care (01) | DRG 566 ==
LOC: JER 12:50 → JERBED 18:44 → J3W 21:37
PROVIDERS: ADMIT Student in an Organized Health Care Education/Training Program; ATTEND Student in an Organized Health Care Education/Training Program
DX: O23.02 Infections of kidney in pregnancy, second trimester (principal); N13.6 Pyonephrosis; Z3A.25 25 weeks gestation of pregnancy
CPT/HCPCS: 36415; 76775-TC; 76815; 76830-TC; 76856-TC; 80053; 81003; 83690; 85025; 86850; 86900; 86901; 87086; 87186; 93005; 93010; 99284-25; J7030

== ENCOUNTER 2019-07-27 15:54 | Inpatient (IN) | payer OTHER ==
[2019-07-27 17:08] VITALS: BMI 31.0
[2019-07-27] MEDS ORDERED: DINOPROSTONE 10 MG VAGINAL SUPPOSITORY VG ONE (17:35)
[2019-07-27] MEDS ORDERED: DEXTROSE 5%-LACTATED RINGERS 1,000 ML IV SCH (17:45)
[2019-07-27 20:55] LABS: BASO % 0.5 % (0-2.0); EOS % 2.3 % (0-4.5); HEMATOCRIT 30.7 % (32.4-45.2); HEMOGLOBIN 9.9 GM/dL (10.7-15.3); LYMPH % 21.6 % (8-40); MCH 23.7 pg (25.7-33.7); MCHC 32.1 g/dl (32.0-36.0); MEAN PLT VOLUME 10.3 fl (7.5-11.1); MONO % 7.1 % (3.8-10.2); NEUT % 68.5 % (42.8-82.8); PLATELET COUNT 162 K/MM3 (134-434); RBC 4.15 M/mm3 (3.60-5.2); RDW 18.2 % (11.6-15.6); WHITE BLOOD COUNT 8.7 K/mm3 (4.0-10.0)
[2019-07-27 21:02] LABS: INR 1.03 (0.83-1.09); PROTHROMBIN TIME (PATIENT) 12.2 SEC (9.7-13.0)
[2019-07-27] MEDS ORDERED: OXYTOCIN 30 UNITS in 0.9% NS 30 UNIT/500 ML INFUS.BAG IVPB SCH (21:15)
[2019-07-27 21:16] LABS: BLOOD UREA NITROGEN 8.5 mg/dL (7-18); CALCIUM 8.6 mg/dL (8.5-10.1); CREATININE 0.5 mg/dL (0.55-1.3); POTASSIUM 3.8 mmol/L (3.5-5.1)
[2019-07-27] MEDS ORDERED: OXYTOCIN 30 UNITS in 0.9% NS 30 UNIT/500 ML INFUS.BAG IVPB ONE (21:23)
[2019-07-28] MEDS ORDERED: AMPICILLIN - 2 GM in SODIUM CHLORIDE 100 ML IVPB ONE (06:30)
[2019-07-28] MEDS ORDERED: AMPICILLIN SODIUM 2 GM VIAL ONE (07:27)
[2019-07-28] MEDS ORDERED: AMPICILLIN SODIUM 1 GM VIAL ONE (07:29)
[2019-07-28] MEDS ORDERED: ELECTROLYTE-148 SOLN 1,000 ML IV SCH (07:45)
[2019-07-28] MEDS ORDERED: FENTANYL/BUPIVACAINE/NS/PF - PCEA - 50 ML DISP.SYRIN EP ONE (07:57)
[2019-07-28] MEDS ORDERED: PCA PUMP NR ONE (07:57)
[2019-07-28] MEDS ORDERED: NALOXONE HCL 0.4 MG/ML VIAL IVPUSH PRN (08:29)
[2019-07-28] MEDS ORDERED: FENTANYL/BUPIVACAINE/NS/PF - PCEA - 50 ML DISP.SYRIN EP SCH (08:30)
[2019-07-28] MEDS ORDERED: OXYTOCIN 20 UNITS in 0.9% NS 20 UNIT/1,000 ML INFUS.BAG IV ONE ×2 (09:04→14:15)
[2019-07-28] MEDS ORDERED: LIDOCAINE HCL 1% PRESERVATIVE FREE - 30ML VIAL ONE (09:05)
[2019-07-28] MEDS ORDERED: AMPICILLIN - 1 GM in SODIUM CHLORIDE 100 ML IVPB SCH ×2 (10:00→10:30)
[2019-07-28] MEDS: OXYTOCIN 20 UNITS in 0.9% NS 20 UNIT/1,000 ML INFUS.BAG IV SCH ×2 (10:20→15:00)
[2019-07-28] MEDS ORDERED: BENZOCAINE 28 GM HEMORRHOIDAL OINTMENT TP PRN (10:46)
[2019-07-28] MEDS ORDERED: BISACODYL 10 MG SUPP.RECT RC PRN (10:46)
[2019-07-28] MEDS ORDERED: METHYLERGONOVINE MALEATE 0.2 MG/1 ML AMP IM PRN (10:46)
[2019-07-28] MEDS ORDERED: WITCH HAZEL 50% (TUCKS) 40 PAD/JAR PAD TP PRN (10:46)
[2019-07-28] MEDS ORDERED: BENZOCAINE 20% 57 GM BOTTLE TP PRN (10:46)
[2019-07-28] MEDS ORDERED: ACETAMINOPHEN 325 MG TABLET (FP) ONE (16:17)
[2019-07-28] MEDS ORDERED: IBUPROFEN 600 MG TABLET (FP) PO ONE (16:18)
[2019-07-28] MEDS: IBUPROFEN 600 MG TABLET (FP) PO PRN (16:20)
[2019-07-28] MEDS: ACETAMINOPHEN 325 MG TABLET (FP) PO PRN (16:20)
[2019-07-28] MEDS: FERROUS SO4 325 MG TABLET (FP) PO SCH (22:22)
[2019-07-29 07:46] LABS: BASO % 0.4 % (0-2.0); EOS % 1.7 % (0-4.5); HEMATOCRIT 26.7 % (32.4-45.2); HEMOGLOBIN 8.6 GM/dL (10.7-15.3); LYMPH % 20.5 % (8-40); MCH 23.7 pg (25.7-33.7); MCHC 32.2 g/dl (32.0-36.0); MEAN CELL VOLUME 73.6 fl (80-96); MEAN PLT VOLUME 9.9 fl (7.5-11.1); MONO % 6.7 % (3.8-10.2); NEUT % 70.7 % (42.8-82.8); PLATELET COUNT 130 K/MM3 (134-434); RBC 3.63 M/mm3 (3.60-5.2); RDW 18.4 % (11.6-15.6); WHITE BLOOD COUNT 9.2 K/mm3 (4.0-10.0)
[2019-07-29] MEDS: PRENATAL VITAMINS W/ FOLIC ACID TABLET (FP) PO SCH (10:37)
[2019-07-29] MEDS: FERROUS SO4 325 MG TABLET (FP) PO SCH ×2 (10:37→21:55)
[2019-07-29] MEDS: IBUPROFEN 600 MG TABLET (FP) PO PRN (21:55)
[2019-07-29] MEDS: ACETAMINOPHEN 325 MG TABLET (FP) PO PRN (21:55)
[2019-07-29] MEDS ORDERED: SENNOSIDES/DOCUSATE COMBO (SENNA PLUS) TABLET (UD) PO PRN (22:00)
[2019-07-30 07:41] VITALS: BP 104/62; PULSE 81; TEMP 98.5
[2019-07-30] MEDS: FERROUS SO4 325 MG TABLET (FP) PO SCH (10:23)
[2019-07-30] MEDS: PRENATAL VITAMINS W/ FOLIC ACID TABLET (FP) PO SCH (10:23)
== END 2019-07-30 13:55 | disposition home or self-care (01) | DRG 560 ==
LOC: JLDR 15:54 → J3W 07-28 17:24
PROVIDERS: ADMIT Obstetrics & Gynecology; ATTEND Obstetrics & Gynecology
PROC: 10E0XZZ Delivery of Products of Conception, External Approach (ICD-10-PCS; principal; 2019-07-28)
PROC: 0HQ9XZZ Repair Perineum Skin, External Approach (ICD-10-PCS; 2019-07-28)
PROC: 3E0P7VZ Introduction of Hormone into Female Reproductive, Via Natural or Artificial Opening (ICD-10-PCS; 2019-07-28)
DX: O48.0 Post-term pregnancy (principal); Z3A.40 40 weeks gestation of pregnancy; Z37.0 Single live birth; O70.9 Perineal laceration during delivery, unspecified
CPT/HCPCS: 36415; 59409; 80048; 85025; 85610; 85730; 86762; 86780; 86850; 86900; 86901